=== PATIENT | female | born 1990 | race American Indian/Alaskan Native ===

== ENCOUNTER 2018-05-18 23:45 | Emergency (ER) | payer SELFPAY ==
[2018-05-19 00:31] VITALS: BP 117/48
== END 2018-05-19 01:11 | disposition left against medical advice (07) ==
LOC: ED 23:45
DX: R10.9 Unspecified abdominal pain (principal); Z53.21 Procedure and treatment not carried out due to patient leaving prior to being seen by health care provider

== ENCOUNTER 2018-05-19 18:08 | Inpatient (IN) | payer MEDICAID ==
[2018-05-19] MEDS ORDERED: TYLENOL ONE (18:43)
[2018-05-19] MEDS ORDERED: NACL 0.9% 500 ML 500 ML IV ONE (18:50)
[2018-05-19] MEDS ORDERED: TYLENOL PO STA (18:50)
[2018-05-19 19:14] LABS: Hematocrit 39.9 % (30.3-42.9); Hemoglobin 13.2 gm/dl (10.1-14.3); Mean Corpuscular HGB Conc 33 % (30-34); Mean Corpuscular Hemoglobin 31 pg (28-32); Mean Corpuscular Volume 94 fl (79-97); Platelet Count 231 K/mm3 (140-440); Red Blood Count 4.26 M/mm3 (3.65-5.03)
[2018-05-19 19:23] LABS: INR 1.09 (0.87-1.13)
[2018-05-19 19:30] LABS: Alanine Aminotransferase 10 units/L (7-56); Albumin 4.3 g/dL (3.9-5); BUN/Creatinine Ratio 6; Blood Urea Nitrogen 5 mg/dL (7-17); Calcium 9.6 mg/dL (8.4-10.2); Hemolysis Index 3
[2018-05-19 19:45] LABS: Basophils % (Manual) 0 % (0.0-1.8); Eosinophils % (Manual) 0 % (0.0-4.3); Total Cells Counted 100
[2018-05-19 19:46] LABS: RBC Morphology Normal
[2018-05-19 20:20] LABS: Bacteria,Urine 1+ /HPF (Negative); Bilirubin,Urine NEG (Negative); Blood,Urine SM (Negative); Color,Urine Yellow (Yellow); Mucus,Urine 1+ /HPF; Renal Epithelial Cells,Urine 2 /LPF; Urobilinogen,Urine < 2.0 mg/dL (<2.0)
--- NOTE | 2018-05-19 20:36 | XRay Report ---
FINAL REPORT EXAM: XR CHEST 1V AP HISTORY: possible Sepsis TECHNIQUE: AP portable view of the chest. PRIORS: None. FINDINGS: The cardiomediastinal silhouette appears normal. The lungs are clear. The bones and soft tissues are unremarkable. Bilateral nipple piercings are noted. IMPRESSION: No evidence of acute cardiopulmonary disease.
[2018-05-19] MEDS ORDERED: ROCEPHIN/NS 1 GM/50 ML 1 GM/50 ML BAG IV ONE (21:49)
[2018-05-19] MEDS ORDERED: NACL 0.9% 1000 ML 1,000 ML IV ONE (21:49)
[2018-05-19] MEDS ORDERED: ZOFRAN ODT PO ONE (21:49)
[2018-05-19] MEDS ORDERED: NACL 0.9% 500 ML 500 ML ONE (22:05)
--- NOTE | 2018-05-19 22:13 | Emergency Department Report ---
ED General Adult HPI - General Chief complaint: Fever Stated complaint: STOMACH/BACK PAIN / Time Seen by Provider: 05/19/18 21:48 Source: patient Mode of arrival: Ambulatory Limitations: No Limitations - History of Present Illness Initial comments: 24 hours of right flank pain. Pain is worse with eating. It is constant. Denies dysuria or urinary frequency. Hasn't taken anything for the pain. He came to the ER for evaluation. She is approximately 12 weeks based on ultrasound. Severity scale (0 -10): 10 - Related Data Allergies Allergy/AdvReac Type Severity Reaction Status Date / Time No Known Allergies Allergy Unverified 05/19/18 18:47 ED Review of Systems ROS: Stated complaint: STOMACH/BACK PAIN / Other details as noted in HPI Comment: All other systems reviewed and negative Gastrointestinal: abdominal pain Musculoskeletal: back pain ED Past Medical Hx - Past Medical History Previous Medical History?: No - Surgical History Past Surgical History?: No - Social History Smoking Status: Never Smoker Substance Use Type: None ED Physical Exam - General Limitations: No Limitations General appearance: alert, in no apparent distress - Head Head exam: Present: atraumatic, normocephalic - Eye Eye exam: Present: normal appearance - ENT ENT exam: Present: mucous membranes moist - Neck Neck exam: Present: normal inspection - Respiratory Respiratory exam: Present: normal lung sounds bilaterally. Absent: respiratory distress - Cardiovascular Cardiovascular Exam: Present: regular rate, normal rhythm. Absent: systolic murmur, diastolic murmur, rubs, gallop - GI/Abdominal GI/Abdominal exam: Present: soft, tenderness (RUQ, RLQ, RT CVA tenderness, neg stanford's sign), normal bowel sounds. Absent: guarding, rebound, rigid - Extremities Exam Extremities exam: Present: normal inspection - Back Exam Back exam: Present: normal inspection - Neurological Exam Neurological exam: Present: alert, oriented X3 - Psychiatric Psychiatric exam: Present: normal affect, normal mood - Skin Skin exam: Present: warm, dry, intact, normal color. Absent: rash ED Course Vital Signs 05/19/18 05/19/18 05/19/18 18:47 19:51 21:48 Temperature 101.2 F H 98.8 F Pulse Rate 116 H 86 Respiratory 24 16 16 Rate Blood Pressure 130/63 Blood Pressure 109/65 [Left] O2 Sat by Pulse 100 98 Oximetry 05/19/18 05/20/18 05/20/18 23:45 00:45 01:17 Temperature 99.6 F 102.5 F H Pulse Rate 113 H 111 H Respiratory 18 26 H 23 Rate Blood Pressure Blood Pressure 108/72 109/66 [Left] O2 Sat by Pulse 98 99 Oximetry 05/20/18 05/20/18 05/20/18 02:00 02:17 02:45 Temperature 99.6 F Pulse Rate 105 H 106 H Respiratory 23 18 21 Rate Blood Pressure 106/65 Blood Pressure 98/48 [Left] O2 Sat by Pulse 99 98 Oximetry - Reevaluation(s) Reevaluation #1: Bedside U/s shows IUP with a FHR 153. Repeat vitals show that the patient is febrile and tachycardic again. She has been given Tylenol and IV fluids. Likely source is urine. Low suspicion for appendicitis given negative Stanford's , Rovsing's, psoas sign. Patient will require admission for further management. 05/20/18 03:32 ED Medical Decision Making - Lab Data Result diagrams: 05/19/18 18:52 05/19/18 18:52 - EKG Data -: EKG Interpreted by Me EKG shows normal: sinus rhythm, axis, intervals, QRS complexes, ST-T waves Rate: tachycardia - EKG Data Interpretation: no acute changes - Radiology Data Radiology results: report reviewed - Medical Decision Making 27-year-old female approximately 12 weeks presents to the ER with right flank pain. Initial triage vital signs were significant for a temp of 101.2 and a heart rate of 116. Their concern for sepsis. She was given Tylenol in triage. Patient was placed in a room and I evaluated her. At recheck of her vitals, her heart rate was 96 and her temperature was gone. Patient is well-appearing. Though patient meet surgical criteria, I will suspicion for sepsis at this point in time. I DC'd the sepsis protocol. EKG shows sinus tachycardia. Patient has no chest or respiratory symptoms. Lab work is significant for lead mild acidosis with a bicarbonate of 21 and a leukocytosis of 18. Patient has prominent right CVA tenderness on exam. Urinalysis is concerning for urinary infection. I believe patient to have pyelonephritis. She'll be given IV fluids and Rocephin. I have ordered heart tones to evaluate the fetus. Low suspicion for appendicitis given negative Stanford sign. Low concern for kidney stone given only a small amount of blood in the urine, well-nourished patient, and another diagnosis more likely. - Differential Diagnosis appendicitis, ectopic , UTI, nephritis, STI, premature labor Critical care attestation.: If time is entered above; I have spent that time in minutes in the direct care of this critically ill patient, excluding procedure time. ED Disposition Clinical Impression: Pyelonephritis, Sepsis, IUP (intrauterine ), incidental Disposition: [id number] OP ADMIT IP TO THIS HOSP Is pt being admited?: Yes Does the pt Need Aspirin: No Condition: Stable Referrals: PRIMARY CARE, [Primary Care Provider] - 3-5 Days
[2018-05-19 23:29] LABS: HCG Qualitative,Urine Positive (Negative)
[2018-05-20] MEDS ORDERED: NACL 0.9% 1000 ML 1,000 ML IV ONE (01:00)
[2018-05-20] MEDS ORDERED: TYLENOL PO ONE (01:00)
[2018-05-20] MEDS ORDERED: TYLENOL PR PRN (03:25)
[2018-05-20] MEDS ORDERED: ZOFRAN IV PRN (03:25)
--- NOTE | 2018-05-20 04:24 | History and Physical Report ---
CHIEF COMPLAINT: Fever. OTHER COMPLAINTS: Include right flank pain. HISTORY OF PRESENT ILLNESS: The patient is a 27-year-old female presenting with fever and right flank pain. The patient said the pain is worse with eating and said this has been going on for about 24 hours prior to presentation. There is no history of dysuria or urinary frequency. The patient is about 12 weeks based on ultrasound. Denied history of nausea, vomiting, but admitted to having fever and presented to the Emergency Room. PAST MEDICAL HISTORY: Unremarkable. PAST SURGICAL HISTORY: Unremarkable. FAMILY HISTORY: Family history is noncontributory. SOCIAL HISTORY: The patient does not smoke, does not drink alcohol, and does not use illicit drugs. MEDICATIONS: The patient's home medications are not known. ALLERGIES: There are no known drug allergies. REVIEW OF SYSTEMS: CONSTITUTIONAL: There is fever. There are no chills. There is no diaphoresis. HEENT: There is no headache or sore throat. CARDIOVASCULAR: There is no chest pain or orthopnea. RESPIRATORY: There is no shortness of breath or cough. GASTROINTESTINAL: There is no nausea, no vomiting, no abdominal pain, diarrhea, or constipation. NEUROLOGICAL: There is no numbness, no dizziness, no altered mental status. MUSCULOSKELETAL: There is no joint pain or swelling. DERMATOLOGICAL: There is no skin rash or itching. GENITOURINARY: There is no dysuria, hematuria, but there is right flank pain. Rest of system review is normal. PHYSICAL EXAMINATION: GENERAL: At the time of exam, the patient was found to be alert, oriented x 3, and not in acute distress. VITAL SIGNS: Initial vital signs on presentation showed temperature of 101.2 degrees Fahrenheit, pulse of 116, respirations 24, blood pressure 130/63, O2 sat of 100% on room air. HEENT: Showed pupils to be equal, round, reactive to light and accommodation. Extraocular muscles are intact. NECK: Supple with no JVD or carotid bruit. CARDIOVASCULAR: Showed normal first and second heart sounds with no gallops or murmurs. RESPIRATORY: Showed good air entry on both sides of the lungs with no abnormal breath sounds. GASTROINTESTINAL: Show abdomen to be full, soft, nontender with no organomegaly or rigidity. NEUROLOGICAL: Shows no focal deficit. MUSCULOSKELETAL: Show no joint swelling or tenderness. DERMATOLOGICAL: Show no skin rash. GENITOURINARY: Showing tenderness in the right flank area. Rest of physical exam is normal. PERTINENT LABORATORY AND IMAGING STUDIES: The patient has CBC done that shows elevated white count of 18,300 with elevated segmented neutrophil of 96%. Coagulation studies came back unremarkable. Chemistry showed low sodium of 132, low chloride of 94.4, low CO2 of 21, and low BUN of 5. Urinalysis shows yellow clear urine with moderate urine leukocyte esterase, negative urine nitrites, high urine WBC of 112, high urine RBC of 6 with 1+ bacteria. Urine test is positive. The patient had chest x-ray done that shows no acute cardiopulmonary disease. DIAGNOSIS: Right pyelonephritis in . PLAN: 1. The patient will be admitted to medical/surgical [facility]. 2. The patient will have obstetrical consult with Dr. Taniya Koch for management of pyelonephritis in . 3. The patient's diet will be regular diet. 4. The patient will be on IV Rocephin 1 g daily and also will be on IV Zofran 4 mg every 8 hours as needed for nausea and vomiting. 5. The patient will be on Tylenol 650 mg by mouth every 4 hours as needed for fever and headache and will be on IV normal saline at 125 mL an hour. JOB# [id number] OCN/NTS MTDD
[2018-05-20] MEDS: NACL 0.9% 1000 ML 1,000 ML IV SCH ×3 (05:27→22:03)
[2018-05-20] MEDS ORDERED: ROCEPHIN/NS 1 GM/50 ML 1 GM/50 ML BAG IV SCH ×2 (10:00→18:00)
[2018-05-20] MEDS ORDERED: NACL 0.9% 500 ML 500 ML IV ONE (11:44)
[2018-05-20] MEDS: DILAUDID IV PRN ×2 (12:29→18:38)
--- NOTE | 2018-05-20 14:22 | Consultation ---
History of Present Illness Consult date: 05/20/18 Requesting physician: ERASTO CAZARES Reason for consult: early problem History of present illness: Pt is a 27-year-old black female approximately 12 weeks presented to the ER with right flank pain. Initial triage vital signs were significant for a temp of 101.2 and a heart rate of 116. Patient had no chest pain or respiratory symptoms. Lab work is significant for leukocytosis of 18. Patient has significant right CVA tenderness consistent with pyelonephritis. She was admitted and begun on IV fluids and IV Rocephin. I have been consulted since she is . Past History Past Medical History: no pertinent history Past Surgical History: no surgical history Family/Genetic History: none Social history: no significant social history, single Medications and Allergies Allergies Allergy/AdvReac Type Severity Reaction Status Date / Time No Known Allergies Allergy Unverified 05/19/18 18:47 Active Meds: Active Medications Acetaminophen (Tylenol) 650 mg OR Q4H PRN PRN Reason: Fever >101 Hydromorphone HCl (Dilaudid) 0.5 mg IV Q3H PRN PRN Reason: Pain , Severe (7-10) Last Admin: 05/20/18 12:29 Dose: 0.5 mg Ceftriaxone Sodium (Rocephin/Ns 1 Gm/50 Ml) 1 gm in 50 mls @ 100 mls/hr IV Q24HR DAMION; Protocol Last Admin: 05/20/18 10:47 Dose: 100 mls/hr Sodium Chloride (Nacl 0.9% 1000 Ml) 1,000 mls @ 125 mls/hr IV DIRECT DAMION Last Admin: 05/20/18 13:23 Dose: 125 mls/hr Ondansetron HCl (Zofran) 4 mg IV Q8H PRN PRN Reason: Nausea And Vomiting Review of Systems All systems: negative Constitutional: fever Genitourinary: hematuria - Vital Signs Vital signs: Vital Signs Temp Pulse Resp BP Pulse Ox 101.2 F H 116 H 24 130/63 100 05/19/18 18:47 05/19/18 18:47 05/19/18 18:47 05/19/18 18:47 05/19/18 18:47 Temp Pulse Resp BP Pulse Ox 102.9 F H 118 H 20 111/62 100 05/20/18 12:10 05/20/18 12:10 05/20/18 12:29 05/20/18 12:10 05/20/18 12:10 - Physical Exam Breasts: Positive: deferred Abdomen: Positive: normal appearance, tenderness (Right CVAT) Results Result Diagrams: 05/19/18 18:52 05/19/18 18:52 Abnormal lab results 05/19/18 05/19/18 05/19/18 Range/Units 18:52 18:52 19:54 WBC 18.3 H (4.5-11.0) K/mm3 Seg Neuts % (Manual) 96.0 H (40.0-70.0) % Lymphocytes % (Manual) 0 L (13.4-35.0) % Seg Neutrophils # Man 17.6 H (1.8-7.7) K/mm3 Lymphocytes # (Manual) 0.0 L (1.2-5.4) K/mm3 Sodium 132 L (137-145) mmol/L Chloride 94.4 L (98-107) mmol/L Carbon Dioxide 21 L (22-30) mmol/L BUN 5 L (7-17) mg/dL Glucose 137 H (65-100) mg/dL Urine WBC (Auto) 112.0 H (0.0-6.0) /HPF Urine HCG, Qual (Negative) 05/19/18 Range/Units 23:00 WBC (4.5-11.0) K/mm3 Seg Neuts % (Manual) (40.0-70.0) % Lymphocytes % (Manual) (13.4-35.0) % Seg Neutrophils # Man (1.8-7.7) K/mm3 Lymphocytes # (Manual) (1.2-5.4) K/mm3 Sodium (137-145) mmol/L Chloride (98-107) mmol/L Carbon Dioxide (22-30) mmol/L BUN (7-17) mg/dL Glucose (65-100) mg/dL Urine WBC (Auto) (0.0-6.0) /HPF Urine HCG, Qual Positive A (Negative) All other labs normal. Assessment and Plan A: Suspected IUP Pyelonephritis P: Agree with admission for IV fluids and IV Rocephin Awaiting urine culture results Will obtain a dating Ob u/s Will follow with you.
--- NOTE | 2018-05-20 16:40 | Progress Note ---
Assessment and Plan Assessment and plan: Patient is a 27 yo woman who is in her first trimester of who pw right flank pains. -Sepsis UTI, suspect Acute pyelonephritis: treat with iv rocephin due to , follow urine cultures. 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 History Interval history: Patient was seen and examined. Follow-up on current diagnosis right flank pains. Overnight uneventful. Patient denies any chest pain, shortness breath, nausea/vomiting or severe headaches. Imaging, nursing note, chart, labs and old chart reviewed. Discussed with patient. She is asking for something stronger than iv morphine for pain. Hospitalist Physical - Physical exam Narrative exam: GEN: ill appearing, toxic and warm, NAD, Awake, Alert, Orientated x 3 HEENT: NCAT, EOMI, PERRL, OP Clear NECK: supple, no adenopathy, no thyromegaly, no JVD CVS/HEART: RRR, normal S1S2, pulses present bilaterally CHEST/LUNGS: CTA B, Symmetrical chest expansion, good air entry bilaterally GI/Abdomen: soft, NTND, good bowel sounds, no guarding or rebound /Bladder: no suprapubic tenderness, right CVA tenderness but no paraspinal tenderness EXT/Skin: no c/c/e, no obvious rash MSK: FROM x 4 Neuro: CN 2-12 grossly intact, no new focal deficits Psych: calm - Constitutional Vitals: Temp Pulse Resp BP Pulse Ox 102.9 F H 118 H 20 111/62 100 05/20/18 12:10 05/20/18 12:10 05/20/18 12:29 05/20/18 12:10 05/20/18 12:10 Results - Labs CBC & Chem 7: 05/19/18 18:52 05/19/18 18:52 Labs: Laboratory Last Values WBC 18.3 K/mm3 (4.5-11.0) H 05/19/18 18:52 RBC 4.26 M/mm3 (3.65-5.03) 05/19/18 18:52 Hgb 13.2 gm/dl (10.1-14.3) 05/19/18 18:52 Hct 39.9 % (30.3-42.9) 08/14/18 18:52 MCV 94 fl (79-97) 18 18:52 MCH 31 pg (28-32) 05/19/18 18:52 MCHC 33 % (30-34) 05/19/18 18:52 RDW 14.0 % (13.2-15.2) 05/19/18 18:52 Plt Count 231 K/mm3 (140-440) 05/19/18 18:52 Add Manual Diff Complete 05/19/18 18:52 Total Counted 100 05/19/18 18:52 Seg Neutrophils % Literacy Education Professor 18 18:52 Seg Neuts % (Manual) 96.0 % (40.0-70.0) H 05/19/18 18:52 Band Neutrophils % 0 % 05/19/18 18:52 Lymphocytes % (Manual) 0 % (13.4-35.0) L 05/19/18 18:52 Reactive Lymphs % (Man) 0 % 05/19/18 18:52 Monocytes % (Manual) 4.0 % (0.0-7.3) 05/19/18 18:52 Eosinophils % (Manual) 0 % (0.0-4.3) 05/19/18 18:52 Basophils % (Manual) 0 % (0.0-1.8) 05/19/18 18:52 Metamyelocytes % 0 % 05/19/18 18:52 Myelocytes % 0 % 05/19/18 18:52 Promyelocytes % 0 % 05/19/18 18:52 Blast Cells % 0 % 05/19/18 18:52 Nucleated RBC % Not Reportable 05/19/18 18:52 Seg Neutrophils # Man 17.6 K/mm3 (1.8-7.7) H 18 18:52 Band Neutrophils # 0.0 K/mm3 18 18:52 Lymphocytes # (Manual) 0.0 K/mm3 (1.2-5.4) L 18 18:52 Abs React Lymphs (Man) 0.0 K/mm3 18 18:52 Monocytes # (Manual) 0.7 K/mm3 (0.0-0.8) 18 18:52 Eosinophils # (Manual) 0.0 K/mm3 (0.0-0.4) 05/19/18 18:52 Basophils # (Manual) 0.0 K/mm3 (0.0-0.1) 05/19/18 18:52 Metamyelocytes # 0.0 K/mm3 05/19/18 18:52 Myelocytes # 0.0 K/mm3 05/19/18 18:52 Promyelocytes # 0.0 K/mm3 05/19/18 18:52 Blast Cells # 0.0 K/mm3 05/19/18 18:52 WBC Morphology Not Reportable 05/19/18 18:52 Hypersegmented Neuts Not Reportable 05/19/18 18:52 Hyposegmented Neuts Not Reportable 05/19/18 18:52 Hypogranular Neuts Not Reportable 05/19/18 18:52 Smudge Cells Not Reportable 05/19/18 18:52 Toxic Granulation Not Reportable 05/19/18 18:52 Toxic Vacuolation Not Reportable 05/19/18 18:52 Dohle Bodies Not Reportable 05/19/18 18:52 Pelger-Huet Anomaly Not Reportable 05/19/18 18:52 Pedro Rods Not Reportable 05/19/18 18:52 Platelet Estimate Appears normal 05/19/18 18:52 Clumped Platelets Not Reportable 05/19/18 18:52 Plt Clumps, EDTA Not Reportable 05/19/18 18:52 Large Platelets Not Reportable 05/19/18 18:52 Giant Platelets Not Reportable 05/19/18 18:52 Platelet Satelliting Not Reportable 05/19/18 18:52 Plt Morphology Comment Not Reportable 05/19/18 18:52 RBC Morphology Normal 05/19/18 18:52 Dimorphic RBCs Not Reportable 05/19/18 18:52 Polychromasia Not Reportable 05/19/18 18:52 Hypochromasia Not Reportable 05/19/18 18:52 Poikilocytosis Not Reportable 05/19/18 18:52 Anisocytosis Not Reportable 05/19/18 18:52 Microcytosis Not Reportable 05/19/18 18:52 Macrocytosis Not Reportable 05/19/18 18:52 Spherocytes Not Reportable 05/19/18 18:52 Pappenheimer Bodies Not Reportable 05/19/18 18:52 Sickle Cells Not Reportable 05/19/18 18:52 Target Cells Not Reportable 05/19/18 18:52 Tear Drop Cells Not Reportable 05/19/18 18:52 Ovalocytes Not Reportable 05/19/18 18:52 Helmet Cells Not Reportable 05/19/18 18:52 Rolon-Ethete Bodies Not Reportable 05/19/18 18:52 [place] Rings Not Reportable 05/19/18 18:52 [place] Cells Not Reportable 05/19/18 18:52 Bite Cells Not Reportable 05/19/18 18:52 Crenated Cell Not Reportable 05/19/18 18:52 Elliptocytes Not Reportable 05/19/18 18:52 Acanthocytes (Spur) Not Reportable 05/19/18 18:52 Rouleaux Not Reportable 05/19/18 18:52 Hemoglobin C Crystals Not Reportable 05/19/18 18:52 Schistocytes Not Reportable 05/19/18 18:52 Malaria parasites Not Reportable 05/19/18 18:52 Mike Bodies Not Reportable 05/19/18 18:52 Hem Pathologist Commnt No 05/19/18 18:52 PT 14.7 Sec. (12.2-14.9) 05/19/18 18:52 INR 1.09 (0.87-1.13) 05/19/18 18:52 VBG pH 7.360 (7.320-7.420) 05/19/18 18:52 Sodium 132 mmol/L (137-145) L 05/19/18 18:52 Potassium 3.6 mmol/L (3.6-5.0) 05/19/18 18:52 Chloride 94.4 mmol/L (98-107) L 05/19/18 18:52 Carbon Dioxide 21 mmol/L (22-30) L 05/19/18 18:52 Anion Gap 20 mmol/L 05/19/18 18:52 BUN 5 mg/dL (7-17) L 05/19/18 18:52 Creatinine 0.8 mg/dL (0.7-1.2) 05/19/18 18:52 Estimated GFR > 60 ml/min 05/19/18 18:52 BUN/Creatinine Ratio 6 % 05/19/18 18:52 Glucose 137 mg/dL (65-100) H 08/14/18 18:52 Lactic Acid 1.60 mmol/L (0.7-2.0) 05/19/18 18:52 Calcium 9.6 mg/dL (8.4-10.2) 05/19/18 18:52 Total Bilirubin 1.10 mg/dL (0.1-1.2) 05/19/18 18:52 AST 13 units/L (5-40) 05/19/18 18:52 ALT 10 units/L (7-56) 05/19/18 18:52 Alkaline Phosphatase 59 units/L (35-129) 05/19/18 18:52 Total Protein 8.2 g/dL (6.3-8.2) 05/19/18 18:52 Albumin 4.3 g/dL (3.9-5) 05/19/18 18:52 Albumin/Globulin Ratio 1.1 % 05/19/18 18:52 Urine Color Yellow (Yellow) 05/19/18 19:54 Urine Turbidity Clear (Clear) 05/19/18 19:54 Urine pH 5.0 (5.0-7.0) 05/19/18 19:54 Ur Specific [place] 1.018 (1.003-1.030) 05/19/18 19:54 Urine Protein 100 mg/dl mg/dL (Negative) 05/19/18 19:54 Urine Glucose (UA) 50 mg/dL (Negative) 05/19/18 19:54 Urine Ketones Neg mg/dL (Negative) 05/19/18 19:54 Urine Blood Sm (Negative) 05/19/18 19:54 Urine Nitrite Neg (Negative) 05/19/18 19:54 Urine Bilirubin Neg (Negative) 05/19/18 19:54 Urine Urobilinogen < 2.0 mg/dL (<2.0) 05/19/18 19:54 Ur Leukocyte Esterase Mod (Negative) 05/19/18 19:54 Urine WBC (Auto) 112.0 /HPF (0.0-6.0) H 05/19/18 19:54 Urine RBC (Auto) 6.0 /HPF (0.0-6.0) 05/19/18 19:54 U Epithel Cells (Auto) 13.0 /HPF (0-13.0) 05/19/18 19:54 Urine Bacteria (Auto) 1+ /HPF (Negative) 05/19/18 19:54 Ur Renal Epithelial Cell 2 /LPF 05/19/18 19:54 Urine Mucus 1+ /HPF 05/19/18 19:54 Urine HCG, Qual Positive (Negative) A 05/19/18 23:00
--- NOTE | 2018-05-20 17:25 | Ultrasound Report ---
FINAL REPORT EXAM: US OB < = 14 WEEKS FETUS HISTORY: Early 27-year-old female, LMP 03/25/2018, quantitative beta HCG is not reported, routine dating TECHNIQUE: Obstetrical transvesical and endovaginal sonographic imaging was performed Comparison: None FINDINGS: Images demonstrate normally anteverted uterus to measure 15.5 x 7.9 x 9.8 centimeters. Within the uterus, there is a gestational sac identified. Within the gestational sac, there is a pole identified. By crown-rump length of 17 millimeters, estimated gestational age is 8 weeks 1 day. Estimated due date by today's ultrasound is 12/29/2018. pole is better assessed by transvaginal imaging than transvesical. heart rate measures 191 beats per minute. Yolk sac measures 4.1 millimeters. No free fluid. No implantation identified. Right ovary measures 3.3 x 2.3 x 4 centimeters. Normal sonographic appearance and normal color flow. Multiple small peripheral follicles. Left ovary measures 5.5 x 2.5 x 4.6 centimeters with a solid isoechoic 2.4 centimeter crenated appearing lesion with central cystic structure which may represent a corpus luteal cyst of . IMPRESSION: Single live intrauterine gestation at 8 weeks 1 day. Estimated due date 12/29/2018. heart rate measures 191 beats per minute. This heart rate is within normal limits for estimated gestational age. No implantation bleed identified. Presumed corpus luteal cyst of left ovary.
[2018-05-21] MEDS: TYLENOL PO PRN ×3 (02:02→18:15)
[2018-05-21] MEDS: NACL 0.9% 1000 ML 1,000 ML IV SCH ×2 (06:06→20:49)
--- NOTE | 2018-05-21 09:55 | Event Note ---
Date: 05/21/18 Received a consultation of a 27 y/o femeale who is in her first trimester of with fever, leukocytosis and UA c/w UTI. I ordered stat blood cultures. F/U urine cultures. Obtain renal US. Continue ceftriaxone. Pyelonephritis takes 4-5 days to respond to appropriate abx so fever may linger. I will see her in the am.Thanks
--- NOTE | 2018-05-21 10:31 | Ultrasound Report ---
ULTRASOUND ABDOMEN COMPLETE: TECHNIQUE: Transabdominal ultrasound with color Doppler interrogation. HISTORY: Pyelonephritis. COMPARISON: none. FINDINGS: LIVER: Normal. BILIARY SYSTEM: There is a small amount of sludge in the gallbladder. No shadowing gallstones or abnormal dilatation. The CBD measures 3 mm. PANCREAS: Normal. SPLEEN: Normal. KIDNEYS: Both kidneys are slightly echogenic consistent with medical renal disease. No evidence for nephrolithiasis or obstructive uropathy.. AORTA/IVC: Normal. ASCITES: None. IMPRESSION: Small amount of sludge in the gallbladder. Medical renal disease. No convincing findings of pyelonephritis on ultrasound. No abscess is identified.
[2018-05-21] MEDS: ROCEPHIN/NS 2 GM/100 ML 2 GM/100 ML BAG IV SCH (11:31)
--- NOTE | 2018-05-21 13:00 | Progress Note ---
Assessment and Plan Assessment and plan: Patient is a 27 yo woman who is in her first trimester of who pw right flank pains. 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 -Hyponatremia, mild due to hypo-osm from dehydration, hypovolemia: treat with IVF, recheck bmp am -Hyperglycemia, mild, Bg 137: check fasting blood glucose -DVT prophylaxis: scd, added sq heparin History Interval history: Patient was seen and examined. Follow-up on current diagnosis right flank pains , feeling better. Overnight uneventful except for fever which resolved. Patient denies any chest pain, shortness breath, nausea/vomiting or severe headaches. Imaging, nursing note, chart, labs and old chart reviewed. Discussed with patient. She is asking for something stronger than iv morphine for pain, and IV dilaudid is working doing better. Hospitalist Physical - Physical exam Narrative exam: GEN: ill appearing, toxic and warm, NAD, Awake, Alert, Orientated x 3 HEENT: NCAT, EOMI, PERRL, OP Clear NECK: supple, no adenopathy, no thyromegaly, no JVD CVS/HEART: RRR, normal S1S2, pulses present bilaterally CHEST/LUNGS: CTA B, Symmetrical chest expansion, good air entry bilaterally GI/Abdomen: soft, NTND, good bowel sounds, no guarding or rebound /Bladder: no suprapubic tenderness, right CVA tenderness but no paraspinal tenderness EXT/Skin: no c/c/e, no obvious rash MSK: FROM x 4 Neuro: CN 2-12 grossly intact, no new focal deficits Psych: calm - Constitutional Vitals: Temp Pulse Resp BP Pulse Ox 98.1 F 77 16 94/47 100 05/21/18 05:43 05/21/18 05:43 05/21/18 05:43 05/21/18 05:43 05/21/18 05:43 Results - Labs CBC & Chem 7: 05/19/18 18:52 05/19/18 18:52 Labs: Laboratory Last Values WBC 18.3 K/mm3 (4.5-11.0) H 05/19/18 18:52 RBC 4.26 M/mm3 (3.65-5.03) 05/19/18 18:52 Hgb 13.2 gm/dl (10.1-14.3) 05/19/18 18:52 Hct 39.9 % (30.3-42.9) 05/19/18 18:52 MCV 94 fl (79-97) 05/19/18 18:52 MCH 31 pg (28-32) 05/19/18 18:52 MCHC 33 % (30-34) 05/19/18 18:52 RDW 14.0 % (13.2-15.2) 05/19/18 18:52 Plt Count 231 K/mm3 (140-440) 05/19/18 18:52 Add Manual Diff Complete 05/19/18 18:52 Total Counted 100 05/19/18 18:52 Seg Neutrophils % Investigator Operator 05/19/18 18:52 Seg Neuts % (Manual) 96.0 % (40.0-70.0) H 05/19/18 18:52 Band Neutrophils % 0 % 05/19/18 18:52 Lymphocytes % (Manual) 0 % (13.4-35.0) L 05/19/18 18:52 Reactive Lymphs % (Man) 0 % 05/19/18 18:52 Monocytes % (Manual) 4.0 % (0.0-7.3) 05/19/18 18:52 Eosinophils % (Manual) 0 % (0.0-4.3) 05/19/18 18:52 Basophils % (Manual) 0 % (0.0-1.8) 05/19/18 18:52 Metamyelocytes % 0 % 05/19/18 18:52 Myelocytes % 0 % 05/19/18 18:52 Promyelocytes % 0 % 05/19/18 18:52 Blast Cells % 0 % 05/19/18 18:52 Nucleated RBC % Not Reportable 05/19/18 18:52 Seg Neutrophils # Man 17.6 K/mm3 (1.8-7.7) H 18 18:52 Band Neutrophils # 0.0 K/mm3 05/19/18 18:52 Lymphocytes # (Manual) 0.0 K/mm3 (1.2-5.4) L 05/19/18 18:52 Abs React Lymphs (Man) 0.0 K/mm3 05/19/18 18:52 Monocytes # (Manual) 0.7 K/mm3 (0.0-0.8) 05/19/18 18:52 Eosinophils # (Manual) 0.0 K/mm3 (0.0-0.4) 05/19/18 18:52 Basophils # (Manual) 0.0 K/mm3 (0.0-0.1) 05/19/18 18:52 Metamyelocytes # 0.0 K/mm3 05/19/18 18:52 Myelocytes # 0.0 K/mm3 05/19/18 18:52 Promyelocytes # 0.0 K/mm3 05/19/18 18:52 Blast Cells # 0.0 K/mm3 05/19/18 18:52 WBC Morphology Not Reportable 05/19/18 18:52 Hypersegmented Neuts Not Reportable 05/19/18 18:52 Hyposegmented Neuts Not Reportable 05/19/18 18:52 Hypogranular Neuts Not Reportable 05/19/18 18:52 Smudge Cells Not Reportable 05/19/18 18:52 Toxic Granulation Not Reportable 05/19/18 18:52 Toxic Vacuolation Not Reportable 05/19/18 18:52 Dohle Bodies Not Reportable 05/19/18 18:52 Pelger-Huet Anomaly Not Reportable 05/19/18 18:52 Pedro Rods Not Reportable 05/19/18 18:52 Platelet Estimate Appears normal 05/19/18 18:52 Clumped Platelets Not Reportable 05/19/18 18:52 Plt Clumps, EDTA Not Reportable 05/19/18 18:52 Large Platelets Not Reportable 05/19/18 18:52 Giant Platelets Not Reportable 05/19/18 18:52 Platelet Satelliting Not Reportable 05/19/18 18:52 Plt Morphology Comment Not Reportable 05/19/18 18:52 RBC Morphology Normal 05/19/18 18:52 Dimorphic RBCs Not Reportable 05/19/18 18:52 Polychromasia Not Reportable 05/19/18 18:52 Hypochromasia Not Reportable 05/19/18 18:52 Poikilocytosis Not Reportable 05/19/18 18:52 Anisocytosis Not Reportable 05/19/18 18:52 Microcytosis Not Reportable 05/19/18 18:52 Macrocytosis Not Reportable 05/19/18 18:52 Spherocytes Not Reportable 05/19/18 18:52 Pappenheimer Bodies Not Reportable 05/19/18 18:52 Sickle Cells Not Reportable 05/19/18 18:52 Target Cells Not Reportable 05/19/18 18:52 Tear Drop Cells Not Reportable 05/19/18 18:52 Ovalocytes Not Reportable 05/19/18 18:52 Helmet Cells Not Reportable 05/19/18 18:52 [place] Bodies Not Reportable 05/19/18 18:52 [place] Rings Not Reportable 05/19/18 18:52 [place] Cells Not Reportable 05/19/18 18:52 Bite Cells Not Reportable 05/19/18 18:52 Crenated Cell Not Reportable 05/19/18 18:52 Elliptocytes Not Reportable 05/19/18 18:52 Acanthocytes (Spur) Not Reportable 05/19/18 18:52 Rouleaux Not Reportable 05/19/18 18:52 Hemoglobin C Crystals Not Reportable 05/19/18 18:52 Schistocytes Not Reportable 05/19/18 18:52 Malaria parasites Not Reportable 05/19/18 18:52 Mike Bodies Not Reportable 05/19/18 18:52 Hem Pathologist Commnt No 05/19/18 18:52 PT 14.7 Sec. (12.2-14.9) 05/19/18 18:52 INR 1.09 (0.87-1.13) 05/19/18 18:52 VBG pH 7.360 (7.320-7.420) 05/19/18 18:52 Sodium 132 mmol/L (137-145) L 05/19/18 18:52 Potassium 3.6 mmol/L (3.6-5.0) 05/19/18 18:52 Chloride 94.4 mmol/L (98-107) L 05/19/18 18:52 Carbon Dioxide 21 mmol/L (22-30) L 05/19/18 18:52 Anion Gap 20 mmol/L 05/19/18 18:52 BUN 5 mg/dL (7-17) L 05/19/18 18:52 Creatinine 0.8 mg/dL (0.7-1.2) 05/19/18 18:52 Estimated GFR > 60 ml/min 05/19/18 18:52 BUN/Creatinine Ratio 6 % 05/19/18 18:52 Glucose 137 mg/dL (65-100) H 05/19/18 18:52 Lactic Acid 1.60 mmol/L (0.7-2.0) 05/19/18 18:52 Calcium 9.6 mg/dL (8.4-10.2) 05/19/18 18:52 Total Bilirubin 1.10 mg/dL (0.1-1.2) 05/19/18 18:52 AST 13 units/L (5-40) 05/19/18 18:52 ALT 10 units/L (7-56) 05/19/18 18:52 Alkaline Phosphatase 59 units/L (35-129) 05/19/18 18:52 Total Protein 8.2 g/dL (6.3-8.2) 05/19/18 18:52 Albumin 4.3 g/dL (3.9-5) 05/19/18 18:52 Albumin/Globulin Ratio 1.1 % 05/19/18 18:52 Urine Color Yellow (Yellow) 05/19/18 19:54 Urine Turbidity Clear (Clear) 05/19/18 19:54 Urine pH 5.0 (5.0-7.0) 05/19/18 19:54 Ur Specific [place] 1.018 (1.003-1.030) 05/19/18 19:54 Urine Protein 100 mg/dl mg/dL (Negative) 05/19/18 19:54 Urine Glucose (UA) 50 mg/dL (Negative) 05/19/18 19:54 Urine Ketones Neg mg/dL (Negative) 05/19/18 19:54 Urine Blood Sm (Negative) 05/19/18 19:54 Urine Nitrite Neg (Negative) 05/19/18 19:54 Urine Bilirubin Neg (Negative) 05/19/18 19:54 Urine Urobilinogen < 2.0 mg/dL (<2.0) 05/19/18 19:54 Ur Leukocyte Esterase Mod (Negative) 05/19/18 19:54 Urine WBC (Auto) 112.0 /HPF (0.0-6.0) H 05/19/18 19:54 Urine RBC (Auto) 6.0 /HPF (0.0-6.0) 05/19/18 19:54 U Epithel Cells (Auto) 13.0 /HPF (0-13.0) 05/19/18 19:54 Urine Bacteria (Auto) 1+ /HPF (Negative) 05/19/18 19:54 Ur Renal Epithelial Cell 2 /LPF 05/19/18 19:54 Urine Mucus 1+ /HPF 05/19/18 19:54 Urine HCG, Qual Positive (Negative) A 05/19/18 23:00
[2018-05-21 14:31] LABS: Basophils # (Auto) 0.1 K/mm3 (0.0-0.1); Basophils % (Auto) 0.6 % (0.0-1.8); Eosinophils % (Auto) 0.3 % (0.0-4.3); Hematocrit 28.4 % (30.3-42.9); Hemoglobin 9.8 gm/dl (10.1-14.3); Lymphocytes # (Auto) 1.2 K/mm3 (1.2-5.4); Lymphocytes % (Auto) 13.1 % (13.4-35.0); Mean Corpuscular HGB Conc 34 % (30-34); Mean Corpuscular Hemoglobin 32 pg (28-32); Mean Corpuscular Volume 93 fl (79-97); Monocytes # (Auto) 1.1 K/mm3 (0.0-0.8); Monocytes % (Auto) 12.6 % (0.0-7.3); Platelet Count 145 K/mm3 (140-440); Red Blood Count 3.05 M/mm3 (3.65-5.03); Red Cell Distribution Width 14.3 % (13.2-15.2)
--- NOTE | 2018-05-21 14:50 | Progress Note ---
Assessment and Plan - Patient Problems (1) 8 weeks gestation of Onset Date: 05/21/18 Current Visit: Yes Status: Acute Plan to address problem: A: IUP @ 8 2/7 weeks Pyelonephritis - currently on IV Rocephin Sepsis - improved P: Continue IV antibiotics Check urine and blood cultures (2) Pyelonephritis Onset Date: 05/21/18 Current Visit: Yes Status: Acute (3) Sepsis Onset Date: 05/21/18 Current Visit: Yes Status: Acute Qualifiers: Sepsis type: sepsis due to unspecified organism Qualified Code(s): A41.9 - Sepsis, unspecified organism Subjective - Subjective Date of service: 05/21/18 Principal diagnosis: IUP @ 8 2/7 weeks; Pyelonephritis Interval history: Pt states she is feeling well except for right flank pain. She denies vaginal bleeding or abdominal cramps. Patient reports: no new complaints, no vaginal bleeding Objective - Vital Signs Vital Signs: Vital Signs - 12hr 05/21/18 05/21/18 05/21/18 03:02 05:43 12:00 Temperature 98.1 F 99.1 F Pulse Rate 77 86 Respiratory 20 16 18 Rate Blood Pressure 94/47 103/54 O2 Sat by Pulse 100 100 Oximetry - Exam Cardiovascular: Regular rate Abdomen: Present: normal appearance, tenderness (Right CVAT) - Labs Labs: Abnormal Labs 05/19/18 05/19/18 05/19/18 18:52 18:52 19:54 WBC 18.3 H RBC Hgb Hct Lymph % (Auto) [place] % (Auto) [place] # Seg Neutrophils % Seg Neuts % (Manual) 96.0 H Lymphocytes % (Manual) 0 L Seg Neutrophils # Man 17.6 H Lymphocytes # (Manual) 0.0 L Sodium 132 L Chloride 94.4 L Carbon Dioxide 21 L BUN 5 L Glucose 137 H Urine WBC (Auto) 112.0 H Urine HCG, Qual 05/19/18 05/21/18 23:00 13:21 WBC RBC 3.05 L Hgb 9.8 L D Hct 28.4 L D Lymph % (Auto) 13.1 L [place] % (Auto) 12.6 H [place] # 1.1 H Seg Neutrophils % 73.4 H Seg Neuts % (Manual) Lymphocytes % (Manual) Seg Neutrophils # Man Lymphocytes # (Manual) Sodium Chloride Carbon Dioxide BUN Glucose Urine WBC (Auto) Urine HCG, Qual Positive A Laboratory Results - last 24 hr 05/21/18 13:21 WBC 8.9 RBC 3.05 L Hgb 9.8 L D Hct 28.4 L D MCV 93 MCH 32 MCHC 34 RDW 14.3 Plt Count 145 Lymph % (Auto) 13.1 L [place] % (Auto) 12.6 H Eos % (Auto) 0.3 Baso % (Auto) 0.6 Lymph # 1.2 [place] # 1.1 H Eos # 0.0 Baso # 0.1 Seg Neutrophils % 73.4 H Seg Neutrophils # 6.6 Microbiology 05/19/18 19:54 Urine Culture - Preliminary Urine,Clean Catch - Results US- obstetric: report reviewed
[2018-05-21] MEDS: DILAUDID IV PRN (16:14)
[2018-05-21] MEDS: HEPARIN SUB-Q SCH (22:18)
[2018-05-22] MEDS: DILAUDID IV PRN (02:09)
[2018-05-22 05:14] LABS: Hematocrit 27.1 % (30.3-42.9); Hemoglobin 9.1 gm/dl (10.1-14.3); Mean Corpuscular HGB Conc 34 % (30-34); Mean Corpuscular Hemoglobin 31 pg (28-32); Mean Corpuscular Volume 92 fl (79-97); Platelet Count 160 K/mm3 (140-440); Red Blood Count 2.93 M/mm3 (3.65-5.03); Red Cell Distribution Width 14.2 % (13.2-15.2)
[2018-05-22 05:33] LABS: BUN/Creatinine Ratio 6; Blood Urea Nitrogen 3 mg/dL (7-17); Calcium 8.1 mg/dL (8.4-10.2); Hemolysis Index 0
--- NOTE | 2018-05-22 10:04 | Consultation ---
History of Present Illness - Reason for Consult Consult date: 05/22/18 UTI Requesting physician: NINI AU - History of Present Illness 27 y/o female with history of recurrent UTIs during ; admitted on due to 24h-history of acute right flank pain and subjective fever. Patient is 8-weeks per US. She denies any dysuria, hematuria, frequency. She reports her previous 2 pregnancies she had UTIs. Denies history of stones. In the ED, temp 101.2, HR 116, R 24, BP 130/63. WBC 18.3. Hg 13.2. Plat 231. Creat 0.8. Microbiology: Blood cultures: 05/21 ngtd Urine cultures: 05/19 ngtd Current Antimicrobials: Ceftriaxone Previous Antimicrobials: Past History Past Medical History: other (recurrent UTIs) Social history: no significant social history, single Medications and Allergies Allergies Allergy/AdvReac Type Severity Reaction Status Date / Time No Known Allergies Allergy Unverified 05/19/18 18:47 Home Medications Medication Instructions Recorded Confirmed Last Taken Type Mv-Mins/Folic Acid/[place]/Caf 1 each PO DAILY 05/20/18 05/20/18 05/16/18 History [One Daily Tablet] Active Meds: Active Medications Acetaminophen (Tylenol) 650 mg PO Q4H PRN PRN Reason: Pain, Mild (1-3) Last Admin: 05/21/18 18:15 Dose: 650 mg Heparin Sodium (Porcine) (Heparin) 5,000 unit SUB-Q Q12HR DAMION Last Admin: 05/21/18 22:18 Dose: Not Given Hydromorphone HCl (Dilaudid) 0.5 mg IV Q3H PRN PRN Reason: Pain , Severe (7-10) Last Admin: 05/22/18 02:09 Dose: 0.5 mg Sodium Chloride (Nacl 0.9% 1000 Ml) 1,000 mls @ 125 mls/hr IV DIRECT DAMION Last Admin: 05/21/18 20:49 Dose: 125 mls/hr Ceftriaxone Sodium (Rocephin/Ns 2 Gm/100 Ml) 2 gm in 100 mls @ 200 mls/hr IV Q24HR DAMION; Protocol Last Admin: 05/21/18 11:31 Dose: 200 mls/hr Ondansetron HCl (Zofran) 4 mg IV Q8H PRN PRN Reason: Nausea And Vomiting Review of Systems All systems: negative (as per hpi) Physical Examination - Physical Exam Narrative exam: General appearance: Alert in NAD, conversant Eyes: anicteric sclerae, moist conjunctivae; no lid-lag; PERRLA HENT: Atraumatic; oropharynx clear. Neck: Trachea midline; supple, no thyromegaly or lymphadenopathy Lungs: CTA, with normal respiratory effort and no intercostal retractions CV: RRR, no murmurs Abdomen: Soft,non tender, uterus Extremities: No peripheral edema or extremity lymphadenopathy Skin: Normal temperature, turgor and texture; no rash, ulcers or subcutaneous nodules Psych: Appropriate affect, alert and oriented to person, place and time. Neuro: alert and oriented x 3. Moving all extermities Lines: No CVL / PICC - Constitutional Vitals: Vital Signs Temp Pulse Resp BP Pulse Ox 98.9 F 89 16 103/66 100 05/22/18 05:11 05/22/18 05:11 05/22/18 05:11 05/22/18 05:11 05/22/18 05:11 Temperature -Last 24 Hours Temperature 98.9 F Temperature 98.9 F Temperature 100.2 F Temperature 99.1 F Results - Labs CBC & Chem 7: 05/22/18 04:51 05/22/18 04:51 Labs: Abnormal lab results 05/21/18 05/22/18 05/22/18 Range/Units 13:21 04:51 04:51 RBC 3.05 L 2.93 L (3.65-5.03) M/mm3 Hgb 9.8 L D 9.1 L (10.1-14.3) gm/dl Hct 28.4 L D 27.1 L (30.3-42.9) % Lymph % (Auto) 13.1 L (13.4-35.0) % [place] % (Auto) 12.6 H (0.0-7.3) % [place] # 1.1 H (0.0-0.8) K/mm3 Seg Neutrophils % 73.4 H (40.0-70.0) % Sodium 136 L (137-145) mmol/L BUN 3 L (7-17) mg/dL Creatinine 0.5 L (0.7-1.2) mg/dL Glucose 107 H (65-100) mg/dL Calcium 8.1 L D (8.4-10.2) mg/dL Assessment and Plan Assessment: 1) Sepsis: Present on admission, manifested by fever, tachycardia, leukocytosis. Etiology most likely UTI 2) UTI: History of recurrent UTI during . Urine culture pending. No renal abscess or hydronephrosis on ultrasound. 3) first trimester Plan: -follow-up blood cultures, urine culture -continue ceftriaxone -upon discharge will do augmentin 875 mg po q12h or ceftin 500 mg po q12h total 10 days until 05/30/18 depending on urine culture result -ID clinic f/u on 06/04 I am available over the phone during the weekend, rounding on Friday Thank you for your consultation, will follow up with you. Ivett Kim MD Infectious Diseases Specialist [facility] ([facility] M [phone] O [phone]
[2018-05-22] MEDS: ROCEPHIN/NS 2 GM/100 ML 2 GM/100 ML BAG IV SCH (10:48)
[2018-05-22] MEDS ORDERED: HEPARIN SUB-Q SCH (13:01)
[2018-05-22] MEDS: TYLENOL PO PRN (14:05)
[2018-05-22] MEDS: HEPARIN SUB-Q SCH (14:06)
--- NOTE | 2018-05-22 16:35 | Discharge Summary ---
Providers - Providers Date of Admission: 05/20/18 03:21 Date of discharge: 05/22/18 Attending physician: NINI AU 05/20/18 06:00 Consult to Physician [CONS] Routine Comment: Consulting Provider: CATHERINE GARRISON Physician Instructions: Reason For Exam: PYELONEPHRITIS IN 05/21/18 08:21 Consult to Physician [CONS] Routine Comment: Consulting Provider: NUVIA AN Physician Instructions: I notified, please add to her list, thank you Reason For Exam: sepsis, pyelonephritis Primary care physician: ESTIMATOR PROJECT MANAGER Hospitalization Condition: Stable Hospital course: Patient is a 27 yo woman who is in her first trimester of who pw right flank pains. 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 -Hyponatremia, mild due to hypo-osm from dehydration, hypovolemia: treat with IVF, recheck bmp am -Hyperglycemia, mild, Bg 137: check fasting blood glucose-->fasting BG was 107 -DVT prophylaxis: scd, added sq heparin Patient wants to go home today Disposition: DC-01 TO HOME OR SELFCARE Time spent for discharge: 35 minutes Core Measure Documentation - Palliative Care Palliative Care/ Comfort Measures: Not Applicable - Core Measures Any of the following diagnoses?: none - VTE Discharge Requirements Deep Vein Thrombosis/Pulmonary Embolism Present on Admission: No Has pt received <5 days of overlap therapy or INR<2.0: No Anticoagulant overlap therapy prescribed at discharge: No Contraindication No Overlap Therapy order at DC: Not Indicated Exam - Physical Exam Narrative exam: GEN: ill appearing, toxic and warm, NAD, Awake, Alert, Orientated x 3 HEENT: NCAT, EOMI, PERRL, OP Clear NECK: supple, no adenopathy, no thyromegaly, no JVD CVS/HEART: RRR, normal S1S2, pulses present bilaterally CHEST/LUNGS: CTA B, Symmetrical chest expansion, good air entry bilaterally GI/Abdomen: soft, NTND, good bowel sounds, no guarding or rebound /Bladder: no suprapubic tenderness, right CVA tenderness less and no paraspinal tenderness EXT/Skin: no c/c/e, no obvious rash MSK: FROM x 4 Neuro: CN 2-12 grossly intact, no new focal deficits Psych: calm - Constitutional Vitals: Temp Pulse Resp BP Pulse Ox 98.6 F 91 H 16 127/85 100 05/22/18 13:49 05/22/18 13:49 05/22/18 13:49 05/22/18 13:58 05/22/18 13:49 Plan Activity: other (no strenous activities until cleared by Dr. Mora or PCP) Diet: regular Follow up with: PRIMARY CAREMD [Primary Care Provider] - 3-5 Days NUVIA AN MD [Staff Physician] - 7 Days CATHERINE GARRISON MD [Staff Physician] - 7 Days Prescriptions: Acetaminophen [Acetaminophen TAB] 650 mg PO Q6H PRN #12 tablet PRN Reason: Non Cardiac Pain Or Temp>100.5 Amoxicillin/Potassium Clav [Augmentin 875-125 Tablet] 1 each PO BID #16 tablet Oxycodone HCl/Acetaminophen [Percocet 10/325 mg] 1 each PO Q6HR PRN #20 tablet PRN Reason: Pain , Severe (7-10)
[2018-05-22 17:48] VITALS: BP 96/45
== END 2018-05-22 21:49 | disposition home or self-care (01) | DRG 872 ==
LOC: ED 18:08 → 3A 05-20 03:21
PROVIDERS: ADMIT Internal Medicine; ATTEND Internal Medicine
DX: A41.9 Sepsis, unspecified organism (principal); N10 Acute pyelonephritis; E87.1 Hypo-osmolality and hyponatremia; R73.9 Hyperglycemia, unspecified; Z33.1 Pregnant state, incidental
CPT/HCPCS: 36415; 71045; 76700; 76801; 76817; 80048; 80053; 81001; 81025; 82140; 82805; 85007; 85025; 85027; 85610; 87040; 87086; 93005; 93010; 96365; J0696; J1170; J1644; J7030; J7040; Q0162